=== PATIENT | female | born 1935 | race Two or more races ===

== ENCOUNTER 2022-05-18 11:01 | Emergency (ER) | payer SELFPAY ==
[2022-05-18] MEDS ORDERED: SODIUM CHLORIDE 0.9% 1,000 ML IV ONE (11:30)
[2022-05-18] MEDS ORDERED: THIAMINE 100mg/ml INJ (200mg/2ml VIAL) IV ONE (11:30)
== END 2022-05-18 11:16 | disposition left against medical advice (07) ==
LOC: ER 11:01 → EDBD 11:01 → ER 11:16
DX: F10.129 Alcohol abuse with intoxication, unspecified (principal); Y90.9 Presence of alcohol in blood, level not specified; E11.9 Type 2 diabetes mellitus without complications; Z53.29 Procedure and treatment not carried out because of patient's decision for other reasons